=== PATIENT | male | born 1955 | race Caucasian/White ===

== ENCOUNTER 2017-12-18 23:35 | Inpatient (IN) | payer OTHER ==
[2017-12-19 03:22] LABS: ADD MAN DIFF? NO
[2017-12-19 03:25] LABS: WHITE BLOOD COUNT 16.3 10^3/ul (4.8-10.8)
[2017-12-19 03:25] LABS: BASOPHIL # 0.1 10^3/ul (0.0-0.1); BASOPHILS % 0.4 % (0.0-2.0); HEMATOCRIT 41.8 % (42.0-52.0); HEMOGLOBIN 14.5 g/dl (14.0-18.0); LYMPHOCYTES # 1.4 10^3/ul (0.8-2.9); LYMPHOCYTES % 8.7 % (15.0-51.0); MEAN CORPUSCULAR HEMOGLOBIN 32.1 pg (29.0-33.0); MEAN CORPUSCULAR HGB CONC 34.7 g/dl (32.0-37.0); MEAN CORPUSCULAR VOLUME 92.5 fl (82.0-101.0); MEAN PLATELET VOLUME 10.5 fl (7.4-10.4); MONOCYTE # 0.7 10^3/ul (0.3-0.9); MONOCYTES % 4.4 % (0.0-11.0); PLATELET COUNT 156 10^3/UL (140-415); RED BLOOD COUNT 4.52 10^6/ul (4.70-6.10); RED CELL DISTRIBUTION WIDTH 12.9 % (11.5-14.5)
[2017-12-19 03:27] LABS: ADD UMIC NO; UR ASCORBIC ACID NEGATIVE (NEGATIVE); UR BILIRUBIN (Dip) NEGATIVE (NEGATIVE); UR BLOOD (Dip) NEGATIVE (NEGATIVE); UR CLARITY CLEAR (CLEAR); UR COLOR YELLOW (YELLOW); UR GLUCOSE (Dip) 2+ mg/dL (NEGATIVE); UR KETONES (Dip) TRACE mg/dL (NEGATIVE); UR LEUKOCYTE ESTERASE (Dip) NEGATIVE Leu/ul (NEGATIVE); UR NITRITE (Dip) NEGATIVE (NEGATIVE); UR SPECIFIC GRAVITY (Dip) 1.028 (1.003-1.030); UR TOTAL PROTEIN (Dip) NEGATIVE (NEGATIVE); UR UROBILINOGEN (Dip) NEGATIVE (NEGATIVE)
[2017-12-19] MEDS: CEFEPIME 2GM/50 ML (PMX) 50 ML IVPB (03:32)
[2017-12-19] MEDS: SODIUM CHLORIDE 0.9% 1L BAG IV* (03:33)
[2017-12-19 03:40] LABS: LACTIC ACID 1.4 mmol/L (0.5-2.0)
[2017-12-19 03:42] LABS: ALANINE AMINOTRANSFERASE 35 IU/L (13-69); ALBUMIN 4.1 g/dl (3.3-4.9); ALBUMIN/GLOBULIN RATIO 1.32; ALKALINE PHOSPHATASE 72 IU/L (42-121); ANION GAP 17 (8-16); ASPARTATE AMINO TRANSFERASE 20 IU/L (15-46); BILIRUBIN,INDIRECT 1.1 mg/dl (0-1.1); BILIRUBIN,TOTAL 1.1 mg/dl (0.2-1.3); BLOOD UREA NITROGEN 17 mg/dl (7-20); CARBON DIOXIDE 23 mmol/L (21-31); CHLORIDE 100 mmol/L (97-110); GLUCOSE 280 mg/dl (70-220); POTASSIUM 4.4 mmol/L (3.5-5.1); SODIUM 136 mmol/L (135-144); TOTAL PROTEIN 7.2 g/dl (6.1-8.1)
[2017-12-19] MEDS: ONDANSETRON 4 MG INJ IV ×2 (03:43→06:08)
[2017-12-19] MEDS: morphine 4 MG/ML VIAL IV ×2 (03:44→06:08)
[2017-12-19 03:53] LABS: TROPONIN-I < 0.010 ng/ml (0.000-0.120)
[2017-12-19 04:00] LABS: INR 1.14; PROTIME 14.8 Sec (11.9-14.9); PT RATIO 1.2
[2017-12-19 04:01] LABS: PARTIAL THROMBOPLASTIN TIME 30.9 Sec (25.0-35.0)
[2017-12-19 06:50] LABS: LACTIC ACID 1.6 mmol/L (0.5-2.0)
[2017-12-19] MEDS ORDERED: HYDROCODONE/APAP (5/325) TAB PO (08:00)
[2017-12-19] MEDS ORDERED: NACL 0.9% 3 ML SYG IV (08:00)
[2017-12-19] MEDS ORDERED: ACETAMINOPHEN 325 MG TAB PO (08:00)
[2017-12-19 08:27] LABS: LACTIC ACID 1.1 mmol/L (0.5-2.0)
[2017-12-19] MEDS ORDERED: GLUCAGON 1 MG INJ IM (08:30)
[2017-12-19] MEDS ORDERED: GLUCOSE GEL 15 GRAM TUBE BUCCAL (08:30)
[2017-12-19] MEDS ORDERED: GLUCOSE GEL 15 GRAM TUBE PO ×2 (08:30)
[2017-12-19] MEDS ORDERED: DEXTROSE 50% 50 ML SYRINGE IV ×2 (08:30)
[2017-12-19 09:04] LABS: HEMOGLOBIN A1C 8.2 % (0-5.9)
[2017-12-19] MEDS: ASPIRIN 81 MG TAB PO (09:45)
[2017-12-19] MEDS: ENOXAPARIN 40 MG/0.4 ML SYG SC (09:49)
[2017-12-19] MEDS: INSULIN ASPART [NOVOLOG] 3 ML PEN SC ×4 (09:56→21:13)
[2017-12-19] MEDS: PIPER-TAZO 3.375 GM IV (PMX) 50 ML IVPB ×2 (12:41→17:59)
[2017-12-20] MEDS: PIPER-TAZO 3.375 GM IV (PMX) 50 ML IVPB ×3 (00:07→12:40)
[2017-12-20] MEDS: ACCU-CHEK XX (02:03)
[2017-12-20 05:47] LABS: ADD MAN DIFF? NO
[2017-12-20 05:53] LABS: BASOPHILS % 0.4 % (0.0-2.0); EOSINOPHILS # 0.2 10^3/ul (0.0-0.5); EOSINOPHILS % 2.4 % (0.0-7.0); HEMATOCRIT 38.4 % (42.0-52.0); HEMOGLOBIN 12.9 g/dl (14.0-18.0); LYMPHOCYTES # 1.7 10^3/ul (0.8-2.9); LYMPHOCYTES % 18.6 % (15.0-51.0); MEAN CORPUSCULAR HEMOGLOBIN 31.9 pg (29.0-33.0); MEAN CORPUSCULAR HGB CONC 33.6 g/dl (32.0-37.0); MEAN CORPUSCULAR VOLUME 94.8 fl (82.0-101.0); MEAN PLATELET VOLUME 10.8 fl (7.4-10.4); MONOCYTE # 0.6 10^3/ul (0.3-0.9); MONOCYTES % 6.7 % (0.0-11.0); NEUTROPHIL # 6.4 10^3/ul (1.6-7.5); NEUTROPHILS % 71.5 % (39.0-77.0); PLATELET COUNT 145 10^3/UL (140-415); RED BLOOD COUNT 4.05 10^6/ul (4.70-6.10)
[2017-12-20 05:53] LABS: WHITE BLOOD COUNT 8.9 10^3/ul (4.8-10.8)
[2017-12-20 06:29] LABS: ANION GAP 11 (8-16); BLOOD UREA NITROGEN 13 mg/dl (7-20); CALCIUM 8.2 mg/dl (8.4-10.2); CARBON DIOXIDE 25 mmol/L (21-31); CHLORIDE 107 mmol/L (97-110); CREATININE 0.82 mg/dl (0.61-1.24); GLUCOSE 210 mg/dl (70-220); PHOSPHORUS 3.2 mg/dl (2.5-4.9); SODIUM 139 mmol/L (135-144)
[2017-12-20] MEDS: ASPIRIN 81 MG TAB PO (08:12)
[2017-12-20] MEDS: ENOXAPARIN 40 MG/0.4 ML SYG SC (08:13)
[2017-12-20] MEDS: INSULIN ASPART [NOVOLOG] 3 ML PEN SC ×4 (08:16→20:35)
[2017-12-21] MEDS: ACCU-CHEK XX (02:00)
[2017-12-21 05:29] LABS: ADD MAN DIFF? NO
[2017-12-21 05:34] LABS: BASOPHIL # 0.1 10^3/ul (0.0-0.1); BASOPHILS % 0.5 % (0.0-2.0); EOSINOPHILS # 0.3 10^3/ul (0.0-0.5); EOSINOPHILS % 3.3 % (0.0-7.0); HEMATOCRIT 38.9 % (42.0-52.0); HEMOGLOBIN 13.5 g/dl (14.0-18.0); LYMPHOCYTES % 20.7 % (15.0-51.0); MEAN CORPUSCULAR HEMOGLOBIN 32.5 pg (29.0-33.0); MEAN CORPUSCULAR HGB CONC 34.7 g/dl (32.0-37.0); MEAN CORPUSCULAR VOLUME 93.7 fl (82.0-101.0); MEAN PLATELET VOLUME 11.1 fl (7.4-10.4); MONOCYTE # 0.8 10^3/ul (0.3-0.9); MONOCYTES % 8.1 % (0.0-11.0); NEUTROPHIL # 6.5 10^3/ul (1.6-7.5); NEUTROPHILS % 67.1 % (39.0-77.0); PLATELET COUNT 154 10^3/UL (140-415); RED BLOOD COUNT 4.15 10^6/ul (4.70-6.10); RED CELL DISTRIBUTION WIDTH 12.6 % (11.5-14.5)
[2017-12-21 05:34] LABS: WHITE BLOOD COUNT 9.6 10^3/ul (4.8-10.8)
[2017-12-21 05:56] LABS: ANION GAP 15 (8-16); BLOOD UREA NITROGEN 11 mg/dl (7-20); CALCIUM 8.5 mg/dl (8.4-10.2); CARBON DIOXIDE 24 mmol/L (21-31); CHLORIDE 105 mmol/L (97-110); CREATININE 0.78 mg/dl (0.61-1.24); GLUCOSE 153 mg/dl (70-220); PHOSPHORUS 4.1 mg/dl (2.5-4.9); POTASSIUM 3.9 mmol/L (3.5-5.1); SODIUM 140 mmol/L (135-144)
[2017-12-21] MEDS: INSULIN ASPART [NOVOLOG] 3 ML PEN SC ×2 (08:37→12:13)
[2017-12-21] MEDS: ENOXAPARIN 40 MG/0.4 ML SYG SC (08:38)
[2017-12-21] MEDS: ASPIRIN 81 MG TAB PO (08:39)
== END 2017-12-21 16:10 | disposition home or self-care (01) | DRG 872 ==
LOC: E/R 23:35 → MS1 12-19 07:02
PROVIDERS: Family Medicine
DX: A41.9 Sepsis, unspecified organism (principal); E11.9 Type 2 diabetes mellitus without complications; Z72.0 Tobacco use; K57.30 Diverticulosis of large intestine without perforation or abscess without bleeding
CPT/HCPCS: 36415; 71045; 74176; 80048; 80053; 81003; 82962; 83036; 83605; 83735; 84100; 84484; 85025; 85610; 85730; 87040; 87086; 93005; 96374; 96375; 99285-25